=== PATIENT | male | born 1965 | race Caucasian/White ===

== ENCOUNTER → 2016-12-27 | Day surgery (SDC) | payer OTHER ==
[~2016-12-27] MED LIST: CRESTOR PO; CRESTOR10 MG PO; NO MEDICATIONS; PHENERGAN PO; PREDNISONE PO; TRILIPIX PO; TRILIPIX135 MG PO; TYLOX 5-500 MG1 EACH; TYLOX 5/500 CAP1 CAP PO
--- NOTE | ~2016-12-27 | OR ---
Unit #: [id number] #: [id number] Patient: HAIM VELASQUEZ JR [id number] [address] [place], [place] [address] [id number] MR#: [id number] NAME: HAIM VELASQUEZ JR ROOM: Date of Procedure: 12/27/2016 Admission Date: 12/27/2016 Surgeon: Dereje Leon M.D. : 1965 Attending Physician: Dereje Leon M.D. Primary Care Physician: Romina Suresh M.D. OPERATIVE REPORT PRIMARY CARE PHYSICIAN Vidya Arango APRN. PREOPERATIVE DIAGNOSES The patient presented for surveillance colonoscopy. He has family history of colon cancer and personal history of colon polyps. PROCEDURES PERFORMED Colonoscopy and biopsies. POSTOPERATIVE DIAGNOSES Completely normal examination up to cecum and terminal ileum. There was a small area of redness in the sigmoid, which appeared to have benign appearance with biopsy. Otherwise, examination was normal up to cecum. RECOMMENDATIONS Repeat colonoscopy in 5 years. SEDATION USED MAC. DESCRIPTION OF PROCEDURE Following detailed explanation of the potential risks and complications of a colonoscopy, namely perforation, bleeding, and complication related to sedation, the patient was brought to GI lab and laid in the left lateral decubitus position. A digital rectal examination was performed, which was normal. Lubricated tip of the Olympus video colonoscope was inserted through the anus and advanced under direct vision. The scope was advanced past rectosigmoid into descending colon. No diverticula were noted in this area. The scope tip was then navigated all the way up to cecum with visualization of the ileocecal valve and the appendiceal orifice. Preparation was excellent with good visualization and photodocumentation was obtained. Last few inches of the terminal ileum were also visualized after intubation of the ileocecal valve and appeared normal. Successive segments of the colonic mucosa were examined upon withdrawal. and appeared unremarkable except for a small area of redness in the mid sigmoid. This was biopsied along with some additional random biopsies taken, because the patient is having history of diarrhea. The patient did not have any polyps. No hemorrhoids noted at the anal verge. The scope was then withdrawn and the patient returned to the recovery area. He tolerated the procedure without any postprocedure complications. Unit #: [id number] #: [id number] Patient: HAIM VELASQUEZ JR Dictated by... Harvey Andrea/nan TD: 12/27/2016 16:56 JOB #: [id number] OPERATIVE REPORT Page 1 of 1 X Dereje Leon MD PROCEDURE OPERATIVE NOTE
== END | disposition home or self-care (01) ==
LOC: COPS 12:37
DX: Z12.11 Encounter for screening for malignant neoplasm of colon (principal); K52.9 Noninfective gastroenteritis and colitis, unspecified; K63.89 Other specified diseases of intestine; K21.9 Gastro-esophageal reflux disease without esophagitis; J30.2 Other seasonal allergic rhinitis; Z80.0 Family history of malignant neoplasm of digestive organs; Z86.010 Personal history of colon polyps; Z98.890 Other specified postprocedural states
CPT/HCPCS: 88305; J2250